=== PATIENT | female | born 1965 | race Caucasian/White ===

== ENCOUNTER 2019-01-30 20:43 | Emergency (ER) | payer MEDICAID ==
[~2019-01-30] VITALS: Ht 175.3 cm; Wt 71.0 kg
[~2019-01-30 20:43] MED LIST: MULT-342 PO
[2019-01-30 20:48] VITALS: BP 141/90
[2019-01-30] MEDS ORDERED: TETanus/Pertussis (Acell)/Diphther VAC/PF (Tdap-Adult) 0.5ml syringe IM ONE (21:20)
[2019-01-30] MEDS ORDERED: HYDROcodone/acetaminophen 10/325mg tab PO ONE (21:20)
[2019-01-30] MEDS ORDERED: HYDR-3965 PO (21:20)
[2019-01-30] MEDS ORDERED: ibuprofen 200mg tablet PO ONE (21:20)
== END 2019-01-30 21:38 | disposition home or self-care (01) ==
LOC: ER 20:43
DX: S92.311A Displaced fracture of first metatarsal bone, right foot, initial encounter for closed fracture (principal); S80.211A Abrasion, right knee, initial encounter; F17.200 Nicotine dependence, unspecified, uncomplicated; Z56.0 Unemployment, unspecified; Z79.899 Other long term (current) drug therapy; X50.1XXA Overexertion from prolonged static or awkward postures, initial encounter; Y93.89 Activity, other specified; Y92.89 Other specified places as the place of occurrence of the external cause; Y99.8 Other external cause status
CPT/HCPCS: 73630; 90471; 99284

== ENCOUNTER 2019-02-20 13:13 | Outpatient (CLI) | payer MEDICAID ==
[2019-02-20 13:08] VITALS: BP 113/74
[~2019-02-20 13:13] MED LIST changes: +HYDR-3965 PO
== END 2019-02-20 13:45 | disposition home or self-care (01) ==
LOC: ORTHO 13:13
PROVIDERS: ATTEND Orthopaedic Surgery
DX: M77.31 Calcaneal spur, right foot (principal); F17.210 Nicotine dependence, cigarettes, uncomplicated
CPT/HCPCS: 73630; G0463